=== PATIENT | male | born 1985 | race Caucasian/White ===

== ENCOUNTER 2016-07-29 10:14 | Emergency (ER) | payer OTHER ==
--- NOTE | 2016-07-29 11:15 | UC ---
Throat Pain/Nasal Levon HPI - HPI Summary HPI Summary: Take the medication as prescribed. incrase your fluid intake and get some rest. ibuprofen and tylenol for pain and fever. - History of Current Complaint Stated Complaint: RESPIRATORY COMPLAINT Time Seen by Provider: 07/29/16 10:51 Hx Obtained From: Patient Onset/Duration: Sudden Onset, Lasting Days Severity: Moderate Cough: Nonproductive Associated Signs & Symptoms: Positive: Dysphagia, Wheezing, Sinus Discomfort - Allergies/Home Medications Allergies/Adverse Reactions: Allergies Allergy/AdvReac Type Severity Reaction Status Date / Time Penicillins Allergy Unknown Verified 01/22/14 19:39 Reaction Details PMH/Surg Hx/FS Hx/Imm Hx Previously Healthy: Yes - Surgical History Surgical History: None - Family History Known Family History: Negative: Diabetes - Social History Alcohol Use: None Substance Use Type: None Smoking Status (MU): Former Smoker Type: eCigarettes Amount Used/How Often: 1 pack daily When Did the Patient Quit Smoking/Using Tobacco: 03/2013 Review of Systems Constitutional: Fatigue Skin: Negative Eyes: Negative ENT: Sore Throat, Ear Ache, Nasal Discharge Respiratory: Cough Cardiovascular: Negative Gastrointestinal: Negative Genitourinary: Negative Motor: Negative Neurovascular: Negative Musculoskeletal: Negative Neurological: Headache Psychological: Negative All Other Systems Reviewed And Are Negative: Yes Physical Exam Triage Information Reviewed: Yes Appearance: Well-Nourished, Ill-Appearing, Pain Distress Vital Signs Reviewed: Yes Eye Exam: Normal Eyes: Positive: Conjunctiva Clear ENT: Positive: Pharyngeal erythema - with postanasal drip, Nasal congestion, Nasal drainage, Muffled/hoarse voice Dental Exam: Normal Neck exam: Normal Neck: Positive: Supple, Nontender, No Lymphadenopathy Respiratory Exam: Normal Respiratory: Positive: Chest non-tender, No respiratory distress, No accessory muscle use, Wheezing, Inspiration Cardiovascular Exam: Normal Cardiovascular: Positive: RRR, No Murmur, Pulses Normal Abdominal Exam: Normal Abdomen Description: Positive: Nontender, No Organomegaly, Soft Bowel Sounds: Positive: Present Musculoskeletal Exam: Normal Musculoskeletal: Positive: Strength Intact, ROM Intact, No Edema Neurological Exam: Normal Neurological: Positive: Alert, Muscle Tone Normal Psychological Exam: Normal Skin Exam: Normal Throat Pain/Nasal Course/Dx - Course Assessment/Plan: hx obtained, exam performed, meds reviewed, treated for sinus congestion and wheezing - Differential Dx/Diagnosis Differential Diagnosis/HQI/PQRI: Influenza, Laryngitis, Otitis Media, Pharyngitis, Sinusitis, Tonsillitis, URI Provider Diagnoses: nasal congestion. wheezing. ear pain Discharge - Discharge Plan Condition: Stable Disposition: HOME Prescriptions: Cetirizine HCl [Zyrtec Allergy] 10 mg PO DAILY #30 tab predniSONE TAB* [Deltasone TAB*] 40 mg PO DAILY #10 tab Patient Education Materials: Rhinosinusitis (ED) Additional Instructions: take the medication as prescribed. increase your fluid intake, and get some rest. follow up with any worsening symptoms.
[2016-07-29 11:22] VITALS: BP 100/61
== END 2016-07-29 11:28 | disposition home or self-care (01) ==
LOC: UCCORT 10:14
DX: R09.81 Nasal congestion (principal); R06.2 Wheezing; H92.09 Otalgia, unspecified ear; Z88.0 Allergy status to penicillin; Z87.891 Personal history of nicotine dependence
CPT/HCPCS: 99212; G0463

== ENCOUNTER 2017-02-19 16:51 | Emergency (ER) | payer OTHER ==
[2017-02-19 18:21] VITALS: BP 124/73
--- NOTE | 2017-02-19 18:27 | ED ---
Skin Complaint - HPI Summary HPI Summary: Pt presents for evaluation of wound on right 4th toe pad. Pt states firm, raised skin. no pain. no warmth. no erythema, drainage. Pt states he thinks wound started as a blister. no fever, chills. 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 Pt did get new shoes this month. No other foot or ankle complaints. Pt's medications reviewed this visit - History of Current Complaint Time Seen by Provider: 02/19/17 18:20 Stated Complaint: BLISTER ON TOE Hx Obtained From: Patient Onset/Duration: Started Weeks Ago Skin Exposure Onset/Duration: Weeks Ago Timing: Constant Onset Severity: Mild Current Severity: None Pain Intensity: 0 - Allergy/Home Medications Allergies/Adverse Reactions: Allergies Allergy/AdvReac Type Severity Reaction Status Date / Time Penicillins Allergy Unknown Verified 02/19/17 18:21 Reaction Details PMH/Surg Hx/FS Hx/Imm Hx Previously Healthy: Yes Respiratory History: Reports: Hx Asthma - Surgical History Surgery Procedure, Year, and Place: none Infectious Disease History: No Infectious Disease History: Denies: Traveled Outside the [place] in Last 30 Days - Family History Known Family History: Negative: Hypertension, Diabetes - Social History Occupation: Employed Full-time Lives: With Family Alcohol Use: Rare Substance Use Type: Reports: None Smoking Status (MU): Former Smoker Type: eCigarettes Amount Used/How Often: 1 pack daily Review of Systems Constitutional: Negative Positive: Other - wound on foot All Other Systems Reviewed And Are Negative: Yes Physical Exam Triage Information Reviewed: Yes Vital Signs On Initial Exam: Initial Vitals Temp Pulse Resp BP Pulse Ox 98.4 F 56 15 124/73 99 02/19/17 18:14 02/19/17 18:14 02/19/17 18:14 02/19/17 18:14 02/19/17 18:14 Vital Signs Reviewed: Yes Appearance: Positive: Well-Appearing, No Pain Distress, Well-Nourished Skin: Positive: Warm, Skin Color Reflects Adequate Perfusion, Dry, Other - left foot, 4th toe on pad with 2x1cm hardened callus, no warmth, no erythema, no drainage, no pain pt with small blister on left great toe, medial edge no concern for infetion Eyes: Negative: Discharge ENT: Positive: Hearing grossly normal Neck: Positive: Supple Respiratory/Lung Sounds: Negative: Unable to speak in full sentences Cardiovascular: Positive: Other - 2+ DP, PT CBt <2 sec Musculoskeletal: Positive: Normal, Strength/ROM Intact Neurological: Positive: Normal, Sensory/Motor Intact, Alert, Oriented to Person Place, Time Diagnostics - Vital Signs Vital Signs Temp Pulse Resp BP Pulse Ox 02/19/17 18:14 98.4 F 56 15 124/73 99 - Laboratory Lab Statement: Any lab studies that have been ordered have been reviewed, and results considered in the medical decision making process. Course/Dx - Course Course Of Treatment: Pt with callus on left 4th toe. non painful. no concern for infection. d/w pt dry socks, support shoes. podiatry referral prn. pt in agreement with plan Assessment/Plan: calluos - Diagnoses Provider Diagnoses: Callus Discharge - Discharge Plan Condition: Stable Disposition: HOME Patient Education Materials: Blister (ED) Referrals: No Primary Care Phys,NOPCP [Primary Care Provider] - Ken Escobedo DPM [Doctor of Podiatric Medicine] - If Needed Additional Instructions: - your wound is a blister that has turned into thickened skin called a corn. These are not dangerous but may become painful - Make sure you wear dry socks and comfortable shoes - monitor your wound for signs of infection -reddness, red streaking, drainage, pain - contact your doctor or the front counter attendant to schedule a follow-up appointment. Contact your doctor or return with questions or concerns
== END 2017-02-19 18:31 | disposition home or self-care (01) ==
LOC: UCCORT 16:51
DX: L84 Corns and callosities (principal); J45.909 Unspecified asthma, uncomplicated; Z87.891 Personal history of nicotine dependence
CPT/HCPCS: 99211; G0463

== ENCOUNTER 2017-04-22 16:07 | Emergency (ER) | payer SELFPAY ==
--- NOTE | 2017-04-22 17:04 | UC ---
Throat Pain/Nasal Levon HPI - HPI Summary HPI Summary: 32 year old male presents with headache, sinus congestion, fever and body aches. - History of Current Complaint Chief Complaint: UCGeneralIllness Stated Complaint: THROAT,COUGH,DIZZINESS Time Seen by Provider: 04/22/17 17:04 Hx Obtained From: Patient Severity: Moderate Pain Scale Used: 0-10 Numeric - 5 Cough: Nonproductive - Allergies/Home Medications Allergies/Adverse Reactions: Allergies Allergy/AdvReac Type Severity Reaction Status Date / Time Penicillins Allergy Unknown Verified 04/22/17 16:54 Reaction Details Home Medications: Home Medications Ibuprofen [Ibuprofen 200] 400 mg PO PRN 04/22/17 [History] PMH/Surg Hx/FS Hx/Imm Hx Previously Healthy: Yes - Surgical History Surgical History: None Surgery Procedure, Year, and Place: none - Family History Known Family History: Negative: Hypertension, Diabetes - Social History Alcohol Use: Occasionally Substance Use Type: None Smoking Status (MU): Former Smoker Type: eCigarettes Amount Used/How Often: 1 pack daily When Did the Patient Quit Smoking/Using Tobacco: 6 MONTHS AGO - Immunization History Most Recent Influenza Vaccination: NO Review of Systems Constitutional: Fever Skin: Negative Eyes: Negative ENT: Nasal Discharge, Sinus Congestion, Sinus Pain/Tenderness Respiratory: Negative Cardiovascular: Negative Gastrointestinal: Negative Genitourinary: Negative Motor: Negative Neurovascular: Negative Musculoskeletal: Negative Neurological: Negative Psychological: Negative All Other Systems Reviewed And Are Negative: Yes Physical Exam Triage Information Reviewed: Yes Vital Signs: Initial Vital Signs Temp 37.0 C 04/22/17 16:55 Pulse 75 04/22/17 16:55 Resp 18 04/22/17 16:55 BP 112/64 04/22/17 16:55 Pulse Ox 100 04/22/17 16:55 Vital Signs Reviewed: Yes Eye Exam: Normal ENT: Positive: Nasal congestion, Nasal drainage, Sinus tenderness Dental Exam: Normal Neck exam: Normal Neck: Positive: 1 Respiratory Exam: Normal Cardiovascular Exam: Normal Abdominal Exam: Normal Musculoskeletal Exam: Normal Neurological Exam: Normal Psychological Exam: Normal Skin Exam: Normal Throat Pain/Nasal Course/Dx - Differential Dx/Diagnosis Provider Diagnoses: sinusitis. allergic rhinitis Discharge - Discharge Plan Condition: Stable Disposition: HOME Prescriptions: Azithromyxin CATIA (NF) [Z-Catia (Zithromax) 250 mg tabs #6] 2 tab PO .TODAY, THEN 1 DAILY #6 tab Guaifenesin-Codeine [Cheratussin AC] 1 teasp PO Q8H PRN #120 ml MDD 15 ml PRN Reason: Cough LoraTADine TAB(NF) [Claritin 10 MG TAB(NF)] 10 mg PO DAILY #30 tab Methylprednisolone [Medrol Dosepak 4 MG*] 4 mg PO .SEE CATIA INSTRUCTION #21 tab Patient Education Materials: Sinusitis (ED) Forms: *Work Release Referrals: No Primary Care Phys,NOPCP [Primary Care Provider] -
[2017-04-22 17:17] VITALS: BP 112/64
== END 2017-04-22 18:00 | disposition home or self-care (01) ==
LOC: UCCORT 16:07
DX: J32.9 Chronic sinusitis, unspecified (principal); J30.9 Allergic rhinitis, unspecified; Z87.891 Personal history of nicotine dependence
CPT/HCPCS: 87502; 87651; 99212; G0463

== ENCOUNTER 2017-06-03 14:27 | Emergency (ER) | payer OTHER ==
[2017-06-03 15:48] VITALS: BP 132/90
--- NOTE | 2017-06-03 15:49 | UC ---
Shoulder Pain HPI - HPI Summary HPI Summary: 32 year old male presents with right shoulder pain after falling 2 weeks ago. - History of Current Complaint Chief Complaint: UCUpperExtremity Stated Complaint: RT SHOULDER PAIN Time Seen by Provider: 06/03/17 15:49 Hx Obtained From: Patient Onset/Duration: Sudden Onset Timing: Constant Severity Initially: Moderate Severity Currently: Moderate Pain Scale Used: 0-10 Numeric - 7 - Allergies/Home Medications Allergies/Adverse Reactions: Allergies Allergy/AdvReac Type Severity Reaction Status Date / Time Penicillins Allergy Unknown Verified 06/03/17 15:48 Reaction Details PMH/Surg Hx/FS Hx/Imm Hx Previously Healthy: Yes - Surgical History Surgical History: None Surgery Procedure, Year, and Place: none - Family History Known Family History: Negative: Hypertension, Diabetes - Social History Alcohol Use: Rare Substance Use Type: None Smoking Status (MU): Former Smoker Type: eCigarettes Amount Used/How Often: 1 pack daily When Did the Patient Quit Smoking/Using Tobacco: 03/2013 - Immunization History Most Recent Influenza Vaccination: NO Review of Systems Constitutional: Negative Skin: Negative Eyes: Negative ENT: Negative Respiratory: Negative Cardiovascular: Negative Gastrointestinal: Negative Genitourinary: Negative Motor: Negative Neurovascular: Negative Musculoskeletal: Myalgia, Other: - right shoulder pain Neurological: Negative Psychological: Negative All Other Systems Reviewed And Are Negative: Yes Physical Exam Triage Information Reviewed: Yes Vital Signs: Initial Vital Signs Temp 36.7 C 06/03/17 15:44 Pulse 62 06/03/17 15:44 Resp 16 06/03/17 15:44 BP 132/90 06/03/17 15:44 Pulse Ox 99 06/03/17 15:44 Vital Signs Reviewed: Yes Eye Exam: Normal ENT Exam: Normal Dental Exam: Normal Neck exam: Normal Neck: Positive: 1 Respiratory Exam: Normal Cardiovascular Exam: Normal Abdominal Exam: Normal Musculoskeletal Exam: Normal Neurological Exam: Normal Psychological Exam: Normal Skin Exam: Normal Shoulder Course/Dx - Differential Dx/Diagnosis Provider Diagnoses: right shoulder pain Discharge - Discharge Plan Condition: Stable Disposition: HOME Prescriptions: Meloxicam [Mobic] 7.5 mg PO BID #30 tab Methocarbamol TAB* [Robaxin 500 MG TAB*] 500 mg PO TID PRN #30 tab PRN Reason: Spasms Patient Education Materials: Calcific Tendinitis (ED) Referrals: Jose Flores [Physical Therapist] - No Primary Care Phys,NOPCP [Primary Care Provider] -
--- NOTE | 2017-06-03 16:42 | RAD ---
INDICATION: Right shoulder pain COMPARISON: None TECHNIQUE: Routine frontal, Y and axillary views were obtained. FINDINGS: There are no acute osseous findings. The a.c. and glenohumeral joints are intact. There are findings of calcific tendinitis. IMPRESSION: CALCIFIC TENDINITIS.
== END 2017-06-03 16:51 | disposition home or self-care (01) ==
LOC: UCCORT 14:27
DX: M25.511 Pain in right shoulder (principal); W19.XXXA Unspecified fall, initial encounter; Y93.9 Activity, unspecified; Y92.9 Unspecified place or not applicable; Z87.891 Personal history of nicotine dependence
CPT/HCPCS: 99212; G0463

== ENCOUNTER 2018-10-23 09:24 | Emergency (ER) | payer MEDICAID, OTHER ==
[2018-10-23 10:29] VITALS: BP 123/81
--- NOTE | 2018-10-23 11:02 | UC ---
Ear Complaint HPI - HPI Summary HPI Summary: 6 DAYS OF LEFT EAR DISCOMFORT AND MUTED HEARING. HAS OCCASIONAL BUZZING IN HIS EAR. DENIES ANY RECENT URI SYMPTOMS. NO FOREIGN BODY SENSATION. NO FEVER, NAUSEA, DIZZINESS. NO HEADACHE. - History of Current Complaint Chief Complaint: UCEar Stated Complaint: LEFT EAR PLUGGED Time Seen by Provider: 10/23/18 10:46 Hx Obtained From: Patient Onset/Duration: Gradual Onset, Lasting Days, Still Present Severity Initially: Mild Severity Currently: Mild Pain Intensity: 1 Pain Scale Used: 0-10 Numeric Aggravating Factors: Nothing Alleviating Factors: Nothing Associated Signs/Symptoms: Positive: Hearing Loss. Negative: Discharge, Trauma to Ear, URI Symptoms - Allergies/Home Medications Allergies/Adverse Reactions: Allergies Allergy/AdvReac Type Severity Reaction Status Date / Time Penicillins Allergy Unknown Verified 10/23/18 10:31 Reaction Details PMH/Surg Hx/FS Hx/Imm Hx Previously Healthy: Yes - Surgical History Surgical History: None Surgery Procedure, Year, and Place: none - Family History Known Family History: Negative: Hypertension, Diabetes - Social History Alcohol Use: Rare Substance Use Type: None Smoking Status (MU): Former Smoker Type: eCigarettes Amount Used/How Often: 1 pack daily When Did the Patient Quit Smoking/Using Tobacco: 03/2013 - Immunization History Most Recent Influenza Vaccination: NO Most Recent Tetanus Shot: unknown Review of Systems All Other Systems Reviewed And Are Negative: Yes Constitutional: Positive: Negative ENT: Positive: Ear Ache Respiratory: Positive: Negative Cardiovascular: Positive: Negative Gastrointestinal: Positive: Negative Physical Exam Triage Information Reviewed: Yes Appearance: Well-Appearing, No Pain Distress, Well-Nourished Vital Signs: Initial Vital Signs Temp 98.4 F 10/23/18 10:22 Pulse 67 10/23/18 10:22 Resp 20 10/23/18 10:22 BP 123/81 10/23/18 10:22 Pulse Ox 100 10/23/18 10:22 Vital Signs Reviewed: Yes Eyes: Positive: Conjunctiva Clear ENT: Positive: Hearing grossly normal, TMs normal - FLUID BEHIND BOTH EARDRUMS. NO WAX OR FOREIGN BODY Neck: Positive: Supple Respiratory: Positive: No respiratory distress, No accessory muscle use Cardiovascular: Positive: Pulses Normal Abdomen Description: Positive: Soft Musculoskeletal: Positive: No Edema Neurological: Positive: Alert Psychological: Positive: Age Appropriate Behavior Skin: Negative: Rashes Ear Complaint Course/Dx - Differential Dx/Diagnosis Provider Diagnosis: Bilateral serous otitis media Discharge - Sign-Out/Discharge Documenting (check all that apply): Patient Departure All imaging exams completed and their final reports reviewed: No Studies - Discharge Plan Condition: Stable Disposition: HOME Prescriptions: Fluticasone NASAL SPRAY 50MCG* [Flonase NASAL SPRAY 50MCG*] 2 spray BOTH NARES DAILY #1 btl Patient Education Materials: Serous Otitis Media (ED) Forms: *Work Release Referrals: [facility] [Outside] - If Needed Additional Instructions: YOU HAVE FLUID BEHIND BOTH EARDRUMS BUT THERE IS NO SIGN OF INFECTION OR FOREIGN BODY. I RECOMMEND YOU TAKE AN [id number] ANTIHISTAMINE/ DECONGESTANT. THIS MAY HELP ENCOURAGE DRAINAGE. WILL ALSO PRESCRIBE FLONASE FOR YOU TO USE AT NIGHT IF THE ALLERGY MEDICINE/DECONGESTANT IS NOT EFFECTIVE. IF YOUR SYMPTOMS ARE PERSISTENT CONSIDER FOLLOWING UP WITH ENT FOR FURTHER EVALUATION. [facility] [place] DRS. [place] [phone] [facility] IN [place] ([place] OFFICE HOURS ON TUESDAYS) DR. HEYDI ZARCO Address: [address] [place] [address] (Tuesdays) Phone [place]: Phone [place]: CALL THE NUMBER BELOW FOR ASSISTANCE IN ESTABLISHING WITH A PCP An additional resource available to assist in finding the appropriate physician for your health care needs is the [facility] (Damari Diallo). You may contact them by calling [phone]. - Billing Disposition and Condition Condition: STABLE Disposition: Home
== END 2018-10-23 11:01 | disposition home or self-care (01) ==
LOC: UCCORT 09:24
DX: H65.93 Unspecified nonsuppurative otitis media, bilateral (principal); Z87.891 Personal history of nicotine dependence
CPT/HCPCS: 99212; G0463